=== PATIENT | female | born 2005 | race Caucasian/White ===

== ENCOUNTER 2025-02-21 13:51 | Emergency (ER) | payer MEDICAID, SELFPAY ==
[2025-02-21] VITALS (11 sets, daily range): BP systolic 109–125; BP diastolic 69–81; PULSE 94; TEMP 37.1; O2SAT 96–100; BMI 18.2
--- NOTE | 2025-02-21 14:36 | PC.NURSE ---
PT HAS NOT BEEN TAKING MEDICATION DIRECTED
[2025-02-21 14:44] LABS: Hematocrit 42.0 % (36.0-48.0); Hemoglobin 14.1 g/dL (12.0-16.0); Mean Corpuscular HGB Conc 33.6 g/dL (29.9-35.2); Mean Corpuscular Hemoglobin 30.9 pg (26.7-34.0); Mean Corpuscular Volume 92.1 fL (81.0-99.0); Platelet Count 187 10^3/uL (150-450); Red Blood Count 4.56 10^6/uL (4.20-5.40); White Blood Count 4.2 10^3/uL (4.0-11.0)
[2025-02-21 14:59] LABS: Anion Gap 11.3; Blood Urea Nitrogen 9.0 mg/dL (7.0-18.0); Calcium 9.1 mg/dL (8.5-10.1); Carbon Dioxide 28.7 mmol/L (21.0-32.0); Chloride 106 mmol/L (98-107); Estimated GFR (African America >60 (>=60 mL/min/1.73m^2); Estimated GFR (Non-African Ame >60 (>=60 mL/min/1.73m^2); Glucose 80 mg/dL (74-106); Potassium 4.0 mmol/L (3.5-5.1); Sodium 142 mmol/L (136-145)
--- NOTE | 2025-02-21 16:48 | ED.GENADUL1 ---
HPI HPI - General Adult General Chief complaint: Seizure Stated complaint: SEIZURE Time Seen by Provider: 02/21/25 14:13 Source: patient and family Mode of arrival: Wheelchair Limitations: no limitations History of Present Illness HPI narrative: Patient is a 19-year-old female, history significant for seizure disorder, presenting to the emergency department for concerns of a breakthrough seizure. Patient presents with her significant other who witnessed the seizure. He states that they were on the way back from the hardware store when the patient had a 1 minute episode of loss of consciousness and full body clenching . The episode resolved on its own, and she seemed to be tired afterwards. On arrival to the ED, she is awake and alert, able to answer questions. Patient states she has a longstanding history of seizures. She states that she is prescribed ethosuximide, however missed her doses over the last 2 days. She did not take her dose of medication today. She actually frequently forgets to take doses of her medications. She has otherwise been in her normal state of health. She denies any infectious-like symptoms such as UTI or URI symptoms. She currently has no complaints. She denies any weakness in the extremities, paresthesias, headache, nausea, vomiting, chest pain, shortness of breath. She denies being . She did not lose bladder/bowel function and did not bite her tongue. Related Data Home Medications ?Medication ?Instructions ?Recorded ?Confirmed ethosuximide 250 mg capsule 250 mg PO BID 02/21/25 02/21/25 Allergies Allergy/AdvReac Type Severity Reaction Status Date / Time No Known Drug Allergies Allergy Verified 02/21/25 13:58 Review of Systems ROS Status of ROS 10 or more systems reviewed and unremarkable except as noted in history and below Exam Narrative Exam Narrative: CONSTITUTIONAL: Patient appears fatigued, but alert and able to answer questions and follow commands appropriately SKIN: Was warm and dry. EYES: Sclerae white. EARS, NOSE, THROAT: Moist oral mucosa. No tongue lacerations RESPIRATORY: Clear to auscultation bilaterally, no wheezes, crackles, or stridor, no use of accessory muscles CARDIOVASCULAR: Normal rate and regular rhythm. There is no S3, S4, murmur, rub. GASTROINTESTINAL: Abdomen is nondistended. MUSCULOSKELETAL: No peripheral edema. NEUROLOGIC: Patient is awake and alert. Equal strength and sensation to light touch in all 4 extremities. Ambulating with a steady gait. Normal speech. Facies were symmetrical. Constitutional Vital Signs, click to edit/add: Last Vital Signs Temp 98.7 F 02/21/25 15:51 Pulse 94 H 02/21/25 15:51 Resp 18 02/21/25 15:51 BP 109/69 02/21/25 15:51 Pulse Ox 97 02/21/25 15:51 O2 Del Method Room Air 02/21/25 15:51 Course Vital Signs Vital signs: Vital Signs Pulse Rate 94 H 02/21/25 13:59 Respiratory Rate 18 02/21/25 13:59 Blood Pressure 115/81 02/21/25 13:59 Pulse Oximetry 100 02/21/25 13:59 Oxygen Delivery Method Room Air 02/21/25 13:59 Temperature 98.7 F 02/21/25 15:51 Pulse Rate 94 H 02/21/25 15:51 Respiratory Rate 18 02/21/25 15:51 Blood Pressure 109/69 02/21/25 15:51 Pulse Oximetry 97 02/21/25 15:51 Oxygen Delivery Method Room Air 02/21/25 15:51 Medical Decision Making MDM Narrative Medical decision making narrative: Patient is a 19-year-old female presenting to the emergency department for evaluation of a breakthrough seizure. She has a known history of seizure disorder, and is prescribed ethosuximide. Vital signs arrival are within normal limits. She is afebrile and hemodynamically stable. Examination as noted above, however was normal without focal neurologic deficits. She is currently asymptomatic, though does appear mildly postictal. My clinical impression is that the patient had a breakthrough seizure secondary to medication nonadherence. She is otherwise asymptomatic and at her current baseline state of health. She has no infectious-like symptoms that may have lowered her seizure threshold. An IV is established and laboratory studies were obtained to rule out underlying electrolyte derangement. test was ordered. Seizure precautions were placed. Patient took her home dose of oral ethosuximide 250 mg while in the ED. Laboratory studies were unremarkable. No significant electrolyte or metabolic derangement. No evidence of acute kidney injury. No anemia, leukocytosis, or thrombocytopenia. test negative. After 1.5 hours in the emergency department, the patient had no further episodes of seizure activity. I do believe she is stable for discharge and outpatient follow-up with her neurologist. Return precautions were given including any new or concerning symptoms. She was educated on the importance of medication compliance as to avoid further seizures. Patient understands and agrees to plan. FINAL IMPRESSION: #Acute breakthrough seizure secondary to medication nonadherence DISPOSITION: Discharged home CONDITION: Good Medical Records Medical records reviewed: Yes I reviewed the patient's medical records Lab Data Lab results reviewed: Yes I reviewed the patient's lab results Labs: Lab Results 02/21/25 Range/Units 14:37 WBC 4.2 (4.0-11.0) 10^3/uL RBC 4.56 (4.20-5.40) 10^6/uL Hgb 14.1 (12.0-16.0) g/dL Hct 42.0 (36.0-48.0) % MCV 92.1 (81.0-99.0) fL MCH 30.9 (26.7-34.0) pg MCHC 33.6 (29.9-35.2) g/dL RDW 12.8 (11.0-15.0) % Plt Count 187 (150-450) 10^3/uL MPV 9.9 (9.5-13.5) fL Sodium 142 (136-145) mmol/L Potassium 4.0 (3.5-5.1) mmol/L Chloride 106 (98-107) mmol/L Carbon Dioxide 28.7 (21.0-32.0) mmol/L Anion Gap 11.3 BUN 9.0 (7.0-18.0) mg/dL Creatinine 0.69 (0.55-1.02) mg/dL Est GFR ( Amer) >60 (>=60 mL/min/1.73m^2) Est GFR (Non-Af Amer) >60 (>=60 mL/min/1.73m^2) BUN/Creatinine Ratio 13.0 Glucose 80 (74-106) mg/dL Calcium 9.1 (8.5-10.1) mg/dL Serum HCG, Qual Negative (NEGATIVE) Discharge Plan Discharge Chief Complaint: Seizure Clinical Impression: Breakthrough seizure Patient Disposition: Home, Self-Care Time of Disposition Decision: 15:18 Condition: Good Mode of Transportation: Private Vehicle Prescriptions / Home Meds: No Action ethosuximide 250 mg capsule 250 mg PO BID Print Language: [place] Instructions: Recurrent Seizures in Adults (ED) Referrals: Physician,Non-Staff, MD [Primary Care Provider] - 1 week Discharge Date/Time: 02/21/25 15:53
== END 2025-02-21 15:53 | disposition home or self-care (01) ==
PROVIDERS: Emergency Provider Student in an Organized Health Care Education/Training Program
DX: G40.909 Epilepsy, unspecified, not intractable, without status epilepticus (principal); T42.2X6A Underdosing of succinimides and oxazolidinediones, initial encounter; Z91.148 Patient's other noncompliance with medication regimen for other reason; Z79.899 Other long term (current) drug therapy
CPT/HCPCS: 36415; 80048; 84703; 85027; 99283

== ENCOUNTER 2025-04-03 14:16 | Emergency (ER) | payer MEDICAID, SELFPAY ==
[2025-04-03 14:40] VITALS: BP 120/80; PULSE 85; TEMP 37.1; O2SAT 100; BMI 19.3
[2025-04-03 15:24] LABS: HCG Qualitative Urine* NEGATIVE (NEGATIVE)
[2025-04-03 15:32] LABS: Glucose Urine UA NEGATIVE (NEGATIVE)
[2025-04-03 15:46] LABS: Cast Seen? NONE SEEN #/LPF (NONE SEEN); Crystals Seen? None Seen #/HPF (None Seen); Urine Culture Indicated YES-FRMC
--- NOTE | 2025-04-04 11:27 | PC.NURSE ---
pt called ED to get results of urine sample from day prior. Pt left without being seen. Consulted with Dr Altamirano and ED director -- we will not be able to call in ATB over the phone since she was not seen by physician. Options given for further tx. Informed pt over the phone that she does have a UTI and that her was negative. Pt denies any questions or concerns.
== END 2025-04-03 16:42 | disposition left against medical advice (07) ==
LOC: ER 14:25
PROVIDERS: Emergency Provider Emergency Medicine
DX: Z53.21 Procedure and treatment not carried out due to patient leaving prior to being seen by health care provider (principal); R10.2 Pelvic and perineal pain
CPT/HCPCS: 81001; 84703; 87086; 99281